=== PATIENT | female | born 1995 | race Caucasian/White ===

== ENCOUNTER 2016-12-13 09:07 | Outpatient (CLI) | payer OTHER ==
[2015-08-19 12:15] VITALS: BP 126/74
--- NOTE | 2016-12-13 17:02 | Diagnostic Imaging Report ---
YINA DECKER [facility] [address] [facility] [address] [address] Report Submission Date: Dec 13, 2016 9:32:18 AM CDT Patient Study Name: GIUSEPPE MULTANI Date: Dec 13, 2016 9:11:55 AM CDT Modality Type: CR Gender: F Description: UPPER EXTREMITY : 89 Institution: [facility] Physician: YINA DECKER Examination: Plain film forearm History: Trauma Comparison exams: None available Findings: 2 views of the tibia radius and ulna demonstrates normal cortical margins. No evidence for fracture line. No soft tissue abnormality. Impression: No osseous abnormality. Electronically signed on Dec 13, 2016 9:32:18 AM CDT by: Con PACHECO
== END 2016-12-13 09:10 ==
LOC: RAD 09:07
PROVIDERS: ATTEND Physician Assistant
DX: S59.912A Unspecified injury of left forearm, initial encounter (principal); X58.XXXA Exposure to other specified factors, initial encounter; Y93.9 Activity, unspecified; Y99.9 Unspecified external cause status
CPT/HCPCS: 73090